=== PATIENT | male | born 1980 | race Caucasian/White ===

== ENCOUNTER 2017-09-14 14:52 | Emergency (ER) | payer MEDICARE, MEDICAID ==
[~2017-09-14] VITALS: Ht 167.6 cm; Wt 69.0 kg
[~2017-09-14 14:52] MED LIST: QUET25TA PO
[2017-09-14 16:04] LABS: ALANINE AMINOTRANSFERASE 33 U/L (12-78); ALBUMIN 3.7 G/DL (3.4-5.0); ALBUMIN/GLOBULIN RATIO 1.2 (1.1-1.5); ALKALINE PHOSPHATASE 114 IU/L (46-116); ANION GAP 8 (8-16); ASPARTATE AMINO TRANSFERASE 17 U/L (10-37); BILIRUBIN,TOTAL 0.2 MG/DL (0.1-1.0); BLOOD UREA NITROGEN 20 MG/DL (7-18); CALCIUM 9.5 MG/DL (8.5-10.1); CHLORIDE 109 MMOL/L (99-107); ETHANOL < 0.010 GM/DL (0.0-0.010); GLUCOSE 86 MG/DL (70-104); POTASSIUM 4.1 MMOL/L (3.5-5.1); SODIUM 147 MMOL/L (135-145); TOTAL CARBON DIOXIDE 29.9 MMOL/L (24-32); TOTAL PROTEIN 6.8 G/DL (6.4-8.2); eGFR > 90 ML/MIN
[2017-09-14 17:07] LABS: CLARITY,URINE CLEAR (Clear); COLOR,URINE YELLOW (Yellow); GLUCOSE, URINE NEGATIVE (Neg); KETONES,URINE NEGATIVE (Neg); LEUKOCYTE ESTERASE ,URINE NEGATIVE (Neg); NITRITES, URINE NEGATIVE (Neg); OCCULT BLOOD,URINE NEGATIVE (Neg); PH,URINE 6.5 (4.8-8.0); PROTEIN,URINE NEGATIVE (Neg); UROBILINOGEN,URINE 0.2 E.U/dL (0.2-1.0)
[2017-09-14 17:17] LABS: URINE AMPHETAMINE SCREEN NEGATIVE (Neg); URINE BARBITUATE SCREEN NEGATIVE (Neg); URINE BENZODIAZEPINES SCREEN NEGATIVE (Neg); URINE CANNABINOID SCREEN POSITIVE (Neg); URINE COCAINE SCREEN NEGATIVE (Neg); URINE METHADONE SCREEN NEGATIVE (Neg); URINE OPIATE SCREEN NEGATIVE (Neg); URINE PHENCYCLIDINE SCREEN NEGATIVE (Neg)
[2017-09-14 17:19] LABS: UA COLLECTION TYPE VOIDED
[2017-09-14] MEDS ORDERED: pantoprazole 40mg Tablet.DR PO STA (17:25)
[2017-09-14] MEDS ORDERED: sucralfate 1 gm tablet PO ONE (17:25)
[2017-09-15] MEDS: nicotine 21mg patch - 24 hr TD ONE ×2 (08:44→09:01)
[2017-09-15 09:55] VITALS: BP 114/70
== END 2017-09-15 10:03 | disposition home or self-care (01) ==
LOC: ER 14:53
DX: F20.9 Schizophrenia, unspecified (principal); K59.00 Constipation, unspecified; D64.9 Anemia, unspecified; F15.10 Other stimulant abuse, uncomplicated
CPT/HCPCS: 36415; 80053; 80305; 80320; 81003; 84443; 99285

== ENCOUNTER 2017-10-02 11:55 | Emergency (ER) | payer MEDICARE, MEDICAID ==
[~2017-10-02] VITALS: Ht 167.6 cm; Wt 67.0 kg
[2017-10-02 12:35] LABS: BASOPHILS # (AUTO) 0.1 X10'3 (0-0.2); BASOPHILS % (AUTO) 1.3 % (0-1); EOSINOPHILS # (AUTO) 0.1 X10'3 (0-0.9); EOSINOPHILS % (AUTO) 1.2 % (0-6); HEMATOCRIT 41.2 % (42.0-52.0); HEMOGLOBIN 14.3 g/dl (14.0-17.9); LYMPHOCYTES # (AUTO) 2.3 X10'3 (1.1-4.8); LYMPHOCYTES % (AUTO) 22.7 % (21-51); MEAN CORPUSCULAR HEMOGLOBIN 30.5 PG (27.0-31.0); MEAN CORPUSCULAR HGB CONC 34.7 % (33.0-36.5); MEAN CORPUSCULAR VOLUME 88.1 FL (78-98); MONOCYTES # (AUTO) 0.8 X10'3 (0-0.9); MONOCYTES % (AUTO) 7.8 % (2-12); NEUTROPHILS # (AUTO) 6.8 X10'3 (1.8-7.7); PLATELET COUNT 264 X10'3 (140-440); RED BLOOD COUNT 4.68 X10'6 (4.70-6.10); RED CELL DISTRIBUTION WIDTH 15.6 % (11.5-14.5); WHITE BLOOD COUNT 10.1 X10'3 (4.5-11.0)
[2017-10-02] MEDS ORDERED: ziprasidone 20mg capsule PO ONE (12:40)
[2017-10-02] MEDS ORDERED: LORazepam 1 MG tablet PO ONE (12:40)
[2017-10-02 12:45] LABS: ALANINE AMINOTRANSFERASE 32 U/L (12-78); ALBUMIN 4.1 G/DL (3.4-5.0); ALBUMIN/GLOBULIN RATIO 1.3 (1.1-1.5); ALKALINE PHOSPHATASE 82 IU/L (46-116); ANION GAP 9 (8-16); ASPARTATE AMINO TRANSFERASE 23 U/L (10-37); BILIRUBIN,TOTAL 0.2 MG/DL (0.1-1.0); BLOOD UREA NITROGEN 8 MG/DL (7-18); BUN/CREATININE RATIO 10.3 (5.4-32.0); CALCIUM 9.4 MG/DL (8.5-10.1); CHLORIDE 106 MMOL/L (99-107); CREATININE 0.78 MG/DL (0.60-1.10); GLUCOSE 97 MG/DL (70-104); POTASSIUM 4.1 MMOL/L (3.5-5.1); SODIUM 145 MMOL/L (135-145); TOTAL CARBON DIOXIDE 30.5 MMOL/L (24-32); TOTAL PROTEIN 7.3 G/DL (6.4-8.2); eGFR > 90 ML/MIN
[2017-10-02 13:44] LABS: CLARITY,URINE Clear (Clear); COLOR,URINE Yellow (Yellow); GLUCOSE, URINE Negative (Neg); KETONES,URINE Negative (Neg); LEUKOCYTE ESTERASE ,URINE Negative (Neg); NITRITES, URINE Negative (Neg); OCCULT BLOOD,URINE Negative (Neg); PROTEIN,URINE Negative (Neg); UROBILINOGEN,URINE 0.2 E.U/dL (0.2-1.0)
[2017-10-02 13:52] LABS: UA COLLECTION TYPE CLN CATCH MIDSTREAM
[2017-10-02 13:53] LABS: ETHANOL < 0.010 GM/DL (0.0-0.010)
[2017-10-02 13:54] LABS: ACETAMINOPHEN < 2.0 UG/ML (10-30)
[2017-10-02 13:56] LABS: URINE AMPHETAMINE SCREEN NEGATIVE (Neg); URINE BARBITUATE SCREEN NEGATIVE (Neg); URINE BENZODIAZEPINES SCREEN NEGATIVE (Neg); URINE CANNABINOID SCREEN POSITIVE (Neg); URINE COCAINE SCREEN NEGATIVE (Neg); URINE METHADONE SCREEN NEGATIVE (Neg); URINE OPIATE SCREEN POSITIVE (Neg); URINE PHENCYCLIDINE SCREEN NEGATIVE (Neg)
[2017-10-03] MEDS ORDERED: acetaminophen 325mg tablet PO PRN (06:35)
[2017-10-03] MEDS ORDERED: nicotine 14mg patch - 24hr TD SCH (08:00)
[2017-10-03] MEDS ORDERED: OLANZapine **IM** 10 mg inj. IM ONE (10:05)
[2017-10-03] MEDS ORDERED: DIVA125T3 PO (10:29)
[2017-10-03] MEDS ORDERED: PALI819S IM (10:29)
[2017-10-03] MEDS ORDERED: PALIPERIDONE PALMITATE IM SCH (12:25)
[2017-10-03 15:12] VITALS: BP 122/86
[2017-10-03] MEDS ORDERED: divalproex sod 125mg tablet.DR PO SCH (20:00)
== END 2017-10-03 14:25 ==
LOC: ER 11:56
DX: F20.9 Schizophrenia, unspecified (principal); R45.851 Suicidal ideations; F79 Unspecified intellectual disabilities; F15.10 Other stimulant abuse, uncomplicated; Z60.2 Problems related to living alone; Z56.0 Unemployment, unspecified
CPT/HCPCS: 36415; 80053; 80305; 80320; 80329; 81003; 84443; 85025; 96372; 99285

== ENCOUNTER 2018-01-07 16:03 | Emergency (ER) | payer MEDICARE, MEDICAID ==
[~2018-01-07] VITALS: Ht 165.1 cm; Wt 71.7 kg
[~2018-01-07 16:03] MED LIST changes: +DIVA125T3 PO; +PALI819S IM; -QUET25TA PO
[2018-01-07 17:50] VITALS: BP 121/71
== END 2018-01-07 18:02 | disposition home or self-care (01) ==
LOC: ER 16:03
DX: F20.9 Schizophrenia, unspecified (principal); F15.10 Other stimulant abuse, uncomplicated; Z56.0 Unemployment, unspecified; Z60.2 Problems related to living alone; Z79.899 Other long term (current) drug therapy
CPT/HCPCS: 99284

== ENCOUNTER 2018-02-21 17:20 | Emergency (ER) | payer MEDICARE, MEDICAID ==
[~2018-02-21] VITALS: Ht 167.6 cm; Wt 69.0 kg
[2018-02-21 17:33] VITALS: BP 128/87
[2018-02-21] MEDS ORDERED: sulfamethoxazole/trimethoprim DS (800/160mg) tablet PO ONE (17:50)
[2018-02-21] MEDS ORDERED: TETanus/Pertussis (Acell)/Diphther VAC/PF (Tdap-Adult) 0.5ml syringe IM ONE (17:50)
[2018-02-21] MEDS ORDERED: cephalexin 500mg capsule PO ONE (17:50)
[2018-02-21] MEDS ORDERED: BACDS PO (17:58)
[2018-02-21] MEDS ORDERED: IBUP-1985 PO (17:58)
[2018-02-21] MEDS ORDERED: CEPH500C2 PO (17:58)
[2018-02-21] MEDS ORDERED: MUPI22OI30 TOP (18:21)
== END 2018-02-21 18:31 | disposition home or self-care (01) ==
LOC: ER 17:21
DX: L03.114 Cellulitis of left upper limb (principal); L03.113 Cellulitis of right upper limb; F15.90 Other stimulant use, unspecified, uncomplicated; Z56.0 Unemployment, unspecified; Z60.2 Problems related to living alone; Z79.899 Other long term (current) drug therapy
CPT/HCPCS: 90471; 90715; 99283

== ENCOUNTER 2018-05-02 16:32 | Emergency (ER) | payer MEDICARE, OTHER ==
[~2018-05-02] VITALS: Ht 167.6 cm; Wt 68.5 kg
[~2018-05-02 16:32] MED LIST changes: -DIVA125T3 PO; +DIVA125T31 PO; +IBUP-1985 PO
[2018-05-02 16:37] VITALS: BP 110/66
== END 2018-05-02 17:58 | disposition home or self-care (01) ==
LOC: ER 16:33
DX: Z02.89 Encounter for other administrative examinations (principal); F15.90 Other stimulant use, unspecified, uncomplicated; Z60.2 Problems related to living alone; Z56.0 Unemployment, unspecified; Z79.899 Other long term (current) drug therapy
CPT/HCPCS: 99281

== ENCOUNTER 2018-10-21 03:15 | Emergency (ER) | payer MEDICARE, MEDICAID ==
[~2018-10-21] VITALS: Ht 167.6 cm; Wt 65.9 kg
[2018-10-21 03:17] VITALS: BP 120/85
[2018-10-22] MEDS ORDERED: BACDS PO (18:23)
== END 2018-10-21 04:10 | disposition home or self-care (01) ==
LOC: ER 03:16
DX: L02.31 Cutaneous abscess of buttock (principal); F12.10 Cannabis abuse, uncomplicated; F15.10 Other stimulant abuse, uncomplicated; F20.9 Schizophrenia, unspecified; Z59.0 Homelessness; Z56.0 Unemployment, unspecified
CPT/HCPCS: 99281

== ENCOUNTER 2018-10-21 14:19 | Emergency (ER) | payer MEDICARE, MEDICAID ==
[~2018-10-21] VITALS: Ht 167.6 cm; Wt 70.3 kg
--- NOTE | 2018-10-21 14:56 | NUR ---
Pt's brother is Marcelino Montano. He would like to be updated on his brothers condition and contacted when his brother is released. His number is [phone].
--- NOTE | 2018-10-21 15:20 | NUR ---
PT BROUGHT IN BY HIS BROTHER, HIS FATHER JUST LAST WEEK, BUT HE STATES HE HATED HIM ANYWAY, HE IS HOMELESS, HAS PAST [facility] HISTORY,HAS NOT TAKEN MEDICATIONS "FAR DAYS" LAST METH USE WAS 5 DAYS AGO PER PT. HE IS EASLIY AGITATED, WANTS HIS HELP RIGHT THIS SECOND, DOES NOT WISH TO ANSWER QUESTIONS FROM MD, HE HEARS VOICES, BUT WILL NOT STATE WHAT THEY ARE TELLING HIM, HE DOES HAVE CONVERSATIONS WITH SOMEONE. SAYS BROTHER TELLS HIM THAT HE NEEDS TO FIX HIMSELF,
[2018-10-21 15:22] LABS: BASOPHILS # (AUTO) 0.1 X10'3 (0-0.2); BASOPHILS % (AUTO) 0.5 % (0-1); EOSINOPHILS # (AUTO) 0.1 X10'3 (0-0.9); EOSINOPHILS % (AUTO) 0.7 % (0-6); HEMATOCRIT 38.7 % (42.0-52.0); HEMOGLOBIN 12.6 g/dl (14.0-17.9); LYMPHOCYTES # (AUTO) 1.7 X10'3 (1.1-4.8); LYMPHOCYTES % (AUTO) 9.9 % (21-51); MEAN CORPUSCULAR HEMOGLOBIN 28.9 PG (27.0-31.0); MEAN CORPUSCULAR HGB CONC 32.5 g/dL (33.0-36.5); MEAN CORPUSCULAR VOLUME 88.9 FL (78-98); MEAN PLATELET VOLUME 8.8 FL (7.4-10.4); MONOCYTES # (AUTO) 1.4 X10'3 (0-0.9); MONOCYTES % (AUTO) 8.1 % (2-12); NEUTROPHILS # (AUTO) 14.1 X10'3 (1.8-7.7); NEUTROPHILS % (AUTO) 80.8 % (42-75); PLATELET COUNT 336 X10'3 (140-440); RED BLOOD COUNT 4.35 X10'6 (4.70-6.10); RED CELL DISTRIBUTION WIDTH 14.3 % (11.5-14.5); WHITE BLOOD COUNT 17.4 X10'3 (4.5-11.0)
[2018-10-21 15:40] LABS: ALANINE AMINOTRANSFERASE 25 U/L (12-78); ALBUMIN/GLOBULIN RATIO 0.8 (1.1-1.5); ALKALINE PHOSPHATASE 91 IU/L (46-116); ANION GAP 7 (8-16); ASPARTATE AMINO TRANSFERASE 17 U/L (10-37); BILIRUBIN,TOTAL 0.1 MG/DL (0.1-1.0); BLOOD UREA NITROGEN 15 MG/DL (7-18); BUN/CREATININE RATIO 19.5 (5.4-32.0); CALCIUM 8.6 MG/DL (8.5-10.1); CHLORIDE 102 MMOL/L (99-107); CREATININE 0.77 MG/DL (0.60-1.10); GLUCOSE 133 MG/DL (70-104); POTASSIUM 4.2 MMOL/L (3.5-5.1); SODIUM 136 MMOL/L (135-145); TOTAL CARBON DIOXIDE 26.6 MMOL/L (24-32); TOTAL PROTEIN 6.7 G/DL (6.4-8.2); eGFR > 90 ML/MIN
[2018-10-21 15:49] LABS: ETHANOL < 0.010 GM/DL (0.0-0.010)
--- NOTE | 2018-10-21 16:36 | NUR ---
PT IS IN BED CURLED UP IN A BALL, REGULAR BREATHING PRESENT
[2018-10-21 17:27] LABS: CLARITY,URINE CLEAR (Clear); COLOR,URINE YELLOW (Yellow); GLUCOSE, URINE NEGATIVE (Neg); KETONES,URINE NEGATIVE (Neg); LEUKOCYTE ESTERASE ,URINE NEGATIVE (Neg); NITRITES, URINE NEGATIVE (Neg); OCCULT BLOOD,URINE NEGATIVE (Neg); PROTEIN,URINE NEGATIVE (Neg); UROBILINOGEN,URINE 0.2 E.U/dL (0.2-1.0)
[2018-10-21 17:30] LABS: UA COLLECTION TYPE URINAL
[2018-10-21 17:46] LABS: URINE AMPHETAMINE SCREEN POSITIVE (Neg); URINE BARBITUATE SCREEN NEGATIVE (Neg); URINE BENZODIAZEPINES SCREEN NEGATIVE (Neg); URINE CANNABINOID SCREEN POSITIVE (Neg); URINE COCAINE SCREEN NEGATIVE (Neg); URINE METHADONE SCREEN NEGATIVE (Neg); URINE OPIATE SCREEN NEGATIVE (Neg); URINE PHENCYCLIDINE SCREEN NEGATIVE (Neg)
--- NOTE | 2018-10-21 18:08 | NUR ---
PT IS IN BED ON LEFT SIDE NO S/S OF DEPRESSION OBSERVED
--- NOTE | 2018-10-21 19:13 | NUR ---
PT IS RESTING SUPINE, NO S/S OF DISTRESS OBSERVED
--- NOTE | 2018-10-21 19:36 | NUR ---
Moises at bedside
[2018-10-21] MEDS ORDERED: hydrOXYzine 25 MG tablet PO PRN (20:00)
[2018-10-21] MEDS ORDERED: risperiDONE 2mg tablet PO ONE (20:05)
--- NOTE | 2018-10-21 20:21 | NUR ---
PT IS ON SITTING UP IN BED, HAS BLANKET OVER HIS HEAD BUT RESPONDS TO QUESTIONS WHEN ASKED
[2018-10-21] MEDS ORDERED: traZODone 50mg tablet PO SCH (21:00)
--- NOTE | 2018-10-21 23:30 | NUR ---
pt laying on right side with eyes closed. nad noted.
--- NOTE | 2018-10-22 01:48 | NUR ---
PT SLEEPING ON RIGHT SIDE. NAD NOTED.
--- NOTE | 2018-10-22 05:26 | NUR ---
pt. sleeping supine. nad noted.
[2018-10-22] MEDS ORDERED: LORazepam 2 mg/ml vial IM ONE (07:50)
[2018-10-22] MEDS ORDERED: nicotine 7mg patch - 24hr TD SCH (08:00)
[2018-10-22] MEDS ORDERED: paliperidone palmitate inj 234 MG/1.5 ML SYRINGE IM ONE (08:15)
[2018-10-22] MEDS ORDERED: PALIPERIDONE 3 MG TAB.ER.24 PO SCH (08:30)
--- NOTE | 2018-10-22 15:21 | NUR ---
[facility] [phone]
[2018-10-22] MEDS ORDERED: BACDS PO (18:23)
[2018-10-22] MEDS ORDERED: sulfamethoxazole/trimethoprim DS (800/160mg) tablet PO ONE (18:25)
[2018-10-22 18:59] VITALS: BP 112/55
[2018-11-20] MEDS ORDERED: paliperidone palmitate inj 234 MG/1.5 ML SYRINGE IM ONE (08:00)
== END 2018-10-22 19:05 ==
LOC: ER 14:19
DX: R45.851 Suicidal ideations (principal); F20.9 Schizophrenia, unspecified; A49.02 Methicillin resistant Staphylococcus aureus infection, unspecified site; F12.10 Cannabis abuse, uncomplicated; F15.10 Other stimulant abuse, uncomplicated; Z59.0 Homelessness; Z56.0 Unemployment, unspecified; Z79.899 Other long term (current) drug therapy
CPT/HCPCS: 36415; 71045; 80053; 80305; 80320; 81003; 84443; 85025; 96372; 99285; J2060; Q0177

== ENCOUNTER 2018-10-23 17:00 | Emergency (ER) | payer MEDICARE, MEDICAID ==
[~2018-10-23] VITALS: Ht 162.6 cm; Wt 69.0 kg
[~2018-10-23 17:00] MED LIST changes: +BACDS PO
[2018-10-23 17:09] VITALS: BP 138/85
[2018-10-23 18:05] LABS: BASOPHILS % (AUTO) 0.2 % (0-1); EOSINOPHILS # (AUTO) 0.2 X10'3 (0-0.9); EOSINOPHILS % (AUTO) 1.1 % (0-6); HEMATOCRIT 37.1 % (42.0-52.0); HEMOGLOBIN 12.5 g/dl (14.0-17.9); LYMPHOCYTES # (AUTO) 1.3 X10'3 (1.1-4.8); LYMPHOCYTES % (AUTO) 7.9 % (21-51); MEAN CORPUSCULAR HEMOGLOBIN 29.4 PG (27.0-31.0); MEAN CORPUSCULAR HGB CONC 33.6 g/dL (33.0-36.5); MEAN CORPUSCULAR VOLUME 87.5 FL (78-98); MEAN PLATELET VOLUME 8.7 FL (7.4-10.4); MONOCYTES % (AUTO) 6.5 % (2-12); NEUTROPHILS # (AUTO) 13.3 X10'3 (1.8-7.7); NEUTROPHILS % (AUTO) 84.3 % (42-75); PLATELET COUNT 313 X10'3 (140-440); RED BLOOD COUNT 4.24 X10'6 (4.70-6.10); RED CELL DISTRIBUTION WIDTH 14.2 % (11.5-14.5); WHITE BLOOD COUNT 15.8 X10'3 (4.5-11.0)
--- NOTE | 2018-10-23 18:09 | NUR ---
[facility] called. Pt placed in queue.
--- NOTE | 2018-10-23 18:23 | NUR ---
pt left without being seen by provider Addendum: 10/23/18 at 1825 by [email or web address] Pt sitting on bed getting frustrated waiting to be seen. RN spoke with pt about giving a urine specimen and having a telepysch eval done. Pt sitting on bed with gown half off. Pt then slammed door shut. RN went to check on pt and he was getting dressed. Pt tired of waiting. RN asked pt to stay and he would be seen. When RN busy with another pt, pt must have went out lobby door. Pt denied suicide ideation or thoughts of harming himself or others to RN during initial encounter. Pt here for wounds on buttocks and legs.
[2018-10-23 18:26] LABS: ALANINE AMINOTRANSFERASE 23 U/L (12-78); ALBUMIN/GLOBULIN RATIO 0.8 (1.1-1.5); ALKALINE PHOSPHATASE 112 IU/L (46-116); ANION GAP 10 (8-16); ASPARTATE AMINO TRANSFERASE 18 U/L (10-37); BILIRUBIN,TOTAL 0.1 MG/DL (0.1-1.0); BLOOD UREA NITROGEN 17 MG/DL (7-18); BUN/CREATININE RATIO 23.3 (5.4-32.0); CALCIUM 8.5 MG/DL (8.5-10.1); CHLORIDE 106 MMOL/L (99-107); CREATININE 0.73 MG/DL (0.60-1.10); ETHANOL < 0.010 GM/DL (0.0-0.010); GLUCOSE 94 MG/DL (70-104); POTASSIUM 3.7 MMOL/L (3.5-5.1); SODIUM 140 MMOL/L (135-145); TOTAL CARBON DIOXIDE 23.9 MMOL/L (24-32); TOTAL PROTEIN 6.9 G/DL (6.4-8.2); eGFR > 90 ML/MIN
--- NOTE | 2018-10-23 18:40 | NUR ---
Veronica PLATT notified pt left without being seen.
== END 2018-10-23 18:42 | disposition home or self-care (01) ==
LOC: ER 17:00
DX: R44.0 Auditory hallucinations (principal); F12.90 Cannabis use, unspecified, uncomplicated; F15.90 Other stimulant use, unspecified, uncomplicated; Z79.899 Other long term (current) drug therapy; Z59.0 Homelessness; Z56.0 Unemployment, unspecified; Z60.2 Problems related to living alone
CPT/HCPCS: 36415; 80053; 80320; 85025; 99283

== ENCOUNTER 2018-11-10 03:50 | Emergency (ER) | payer MEDICARE, MEDICAID ==
[~2018-11-10] VITALS: Ht 167.6 cm; Wt 63.6 kg
[2018-11-10 06:05] VITALS: BP 137/87
== END 2018-11-10 06:11 | disposition home or self-care (01) ==
LOC: ER 03:51
DX: S60.221A Contusion of right hand, initial encounter (principal); M54.2 Cervicalgia; F12.90 Cannabis use, unspecified, uncomplicated; F15.90 Other stimulant use, unspecified, uncomplicated; Z59.0 Homelessness; Z56.0 Unemployment, unspecified; V57.6XXA Passenger in pick-up truck or van injured in collision with fixed or stationary object in traffic accident, initial encounter; Y93.89 Activity, other specified; Y92.488 Other paved roadways as the place of occurrence of the external cause; Y99.8 Other external cause status
CPT/HCPCS: 70450; 72125; 73130; 99284

== ENCOUNTER 2018-11-24 16:40 | Emergency (ER) | payer MEDICARE, MEDICAID ==
[~2018-11-24] VITALS: Ht 167.6 cm; Wt 66.0 kg
[~2018-11-24 16:40] MED LIST changes: -BACDS PO
[2018-11-24 16:41] VITALS: BP 97/74
== END 2018-11-24 16:50 | disposition left against medical advice (07) ==
LOC: ER 16:41
DX: Z00.8 Encounter for other general examination (principal); Z53.21 Procedure and treatment not carried out due to patient leaving prior to being seen by health care provider